=== PATIENT | male | born 1980 | race African-American/Black ===

== ENCOUNTER 2023-10-10 11:30 | Emergency (ER) | payer SELFPAY ==
[~2023-10-10] VITALS: Ht 172.7 cm; Wt 68.2 kg
[~2023-10-10 11:30] MED LIST: ATIVAN 0.50.5 MG/TAB PO; CEPHALEXIN500 M1 PO; LORTAB 5/500 501 TAB PO; NO HOME MEDICATIONS
[2023-10-10 11:50] VITALS: BP 146/76; TEMP 98.2
[2023-10-10 12:33] VITALS: PULSE 91
== END 2023-10-10 12:35 | disposition home or self-care (01) ==
LOC: COL.ER 11:30
DX: H02.822 Cysts of right lower eyelid (principal)

== ENCOUNTER 2024-01-01 11:50 | Emergency (ER) | payer SELFPAY ==
[~2024-01-01] VITALS: Ht 167.6 cm; Wt 65.9 kg
[2024-01-01 11:53] VITALS: TEMP 98.2
[2024-01-01] MEDS ORDERED: NS 1,000 ML IV ONE (12:15)
[2024-01-01 12:22] LABS: BASO # 0.1 K/mm3 (0.0-0.2); BASO % 1.1 % (0.0-2.0); EOS # 0.1 K/mm3 (0.0-0.7); EOS % 1.1 % (0.0-4.0); GRAN # 3.4 K/mm3 (1.4-6.5); GRAN % 71.6 % (42.2-75.2); HEMATOCRIT 38.2 % (42.0-52.0); HEMOGLOBIN 12.4 g/dl (13.5-18.0); LYMPH # 0.8 K/mm3 (1.2-3.4); LYMPH % 17.3 % (20.0-51.0); MEAN CELL VOLUME 94 fl (80.0-100.0); MEAN CORPUSCULAR HEMOGLOBIN 31 pg (27-31); MEAN CORPUSCULAR HGB CONC 33 g/dl (33.0-37.0); MEAN PLATELET VOLUME 10.7 fl (7.4-10.4); MONO # 0.4 K/mm3 (0.1-0.6); MONO % 8.5 % (1.7-9.3); PLATELET COUNT 142 K/mm3 (130-400); RED BLOOD COUNT 4.05 M/mm3 (4.20-5.60); REDCELL DISTRIBUTION WIDTH-CV 15.3 % (11.5-14.5)
[2024-01-01 12:39] LABS: ALANINE AMINOTRANSFERASE 170 U/L (0-55); ALBUMIN 4.4 g/dL (3.5-5.0); ALKALINE PHOSPHATASE 129 U/L (40-150); ANION GAP 23 mmol/L (7-16); AST,SGOT 302 U/L (5-34); BILIRUBIN,TOTAL 1.4 mg/dL (0.2-1.2); BLOOD UREA NITROGEN 13 mg/dL (9-21); CALCIUM 9.1 mg/dL (8.4-10.2); CHLORIDE 103 mEq/L (98-107); CREATININE, serum 1.08 mg/dL (0.72-1.25); GLUCOSE 140 mg/dL (70-99); POTASSIUM 3.3 mEq/L (3.5-4.5); SODIUM 139 mEq/L (136-145); TOTAL PROTEIN 7.7 g/dl (6.2-8.1)
[2024-01-01 12:40] LABS: ALCOHOL(ethanol),MEDICAL < 10 mg/dL (0-10)
[2024-01-01 14:03] LABS: TRICYCLIC ANTIDEPRESS URINE NEGATIVE (NEGATIVE)
[2024-01-01 14:48] VITALS: BP 127/74; PULSE 84
== END 2024-01-01 14:56 | disposition home or self-care (01) ==
LOC: COL.ER 11:50
PROVIDERS: Personal Emergency Response Attendant
DX: R55 Syncope and collapse (principal); E86.0 Dehydration
CPT/HCPCS: J7030